=== PATIENT | female | born 1940 | race African-American/Black ===

== ENCOUNTER 2017-02-02 11:25 | Emergency (ER) | payer OTHER ==
[~2017-02-02] VITALS: Ht 162.6 cm; Wt 75.0 kg
[2017-02-02] MEDS ORDERED: MORPHINE SULFATE 2 MG/ML CPJ (NOT FOR IM USE) IV ONE (11:45)
[2017-02-02] MEDS ORDERED: ONDANSETRON HCL 4MG/2ML VIAL IV ONE ×2 (11:45→13:30)
[2017-02-02] MEDS ORDERED: KETAMINE HCL 50 MG/ML 10ML IV ONE (13:30)
[2017-02-02 18:43] VITALS: BP 138/70
== END 2017-02-02 20:45 | disposition home or self-care (01) ==
LOC: ER 11:38
DX: S43.005A Unspecified dislocation of left shoulder joint, initial encounter (principal); Z88.0 Allergy status to penicillin; W01.0XXA Fall on same level from slipping, tripping and stumbling without subsequent striking against object, initial encounter; Y93.89 Activity, other specified; Y92.89 Other specified places as the place of occurrence of the external cause; Y99.8 Other external cause status
CPT/HCPCS: 23650; 73030; 73060; 93005; 96374; 96375; 96376; 99284; J2270; J2405; J3490; Z7610; L3670